=== PATIENT | male | born 1985 | race Caucasian/White ===

== ENCOUNTER 2019-08-02 12:03 | Emergency (ER) | payer MEDICAID ==
[~2019-08-02] VITALS: Ht 177.8 cm; Wt 75.0 kg
[2019-08-02] MEDS ORDERED: HYDROcodone/acetaminophen 5mg/325mg tablet PO ONE (14:30)
[2019-08-02 15:10] VITALS: BP 152/52
--- NOTE | 2019-08-02 15:25 | NUR ---
Pt's ortho orders are being completed and discharge is pending momentarilly.
== END 2019-08-02 15:30 | disposition home or self-care (01) ==
LOC: ER 12:04
DX: S93.402A Sprain of unspecified ligament of left ankle, initial encounter (principal); X58.XXXA Exposure to other specified factors, initial encounter; Y93.89 Activity, other specified; Y92.89 Other specified places as the place of occurrence of the external cause; Y99.8 Other external cause status
CPT/HCPCS: 29515; 73610; 73630; 99284

== ENCOUNTER 2021-12-12 23:37 | Emergency (ER) | payer MEDICAID, OTHER ==
[~2021-12-12] VITALS: Ht 177.8 cm; Wt 100.0 kg
[2021-12-13] MEDS ORDERED: AMOX500C2 PO (00:39)
[2021-12-13] MEDS ORDERED: ondansetron 4mg rapidly disintigrating tab PO ONE (00:40)
[2021-12-13] MEDS ORDERED: amoxicillin 250mg capsule PO ONE (00:40)
[2021-12-13 01:01] VITALS: BP 147/94
== END 2021-12-13 01:02 | disposition home or self-care (01) ==
LOC: ER 23:37
DX: K08.89 Other specified disorders of teeth and supporting structures (principal)
CPT/HCPCS: 99283

== ENCOUNTER 2022-02-16 21:43 | Emergency (ER) | payer OTHER, MEDICAID ==
[~2022-02-16] VITALS: Ht 177.8 cm; Wt 100.0 kg
[2022-02-16 21:57] VITALS: BP 164/107
[2022-02-16] MEDS ORDERED: AMOX-580 PO (22:36)
[2022-02-16] MEDS ORDERED: ketorolac tromethamine 15mg/ml inj. IM ONE (22:45)
[2022-02-16] MEDS ORDERED: HYDROcodone/acetaminophen 10/325mg tab PO ONE (22:45)
[2022-02-16] MEDS ORDERED: ondansetron 4mg rapidly disintigrating tab PO ONE (22:45)
[2022-02-16] MEDS ORDERED: amox tr/potassium clavulanate 875/125mg TAB PO ONE (22:45)
== END 2022-02-16 23:21 | disposition home or self-care (01) ==
LOC: ER 21:43
DX: K04.7 Periapical abscess without sinus (principal); Z79.899 Other long term (current) drug therapy
CPT/HCPCS: 41800; 96372; 99284; J1885